=== PATIENT | female | born 1975 | race Caucasian/White ===

== ENCOUNTER 2016-08-25 21:57 | Inpatient (IN) | payer OTHER ==
--- NOTE | ~2016-08-25 | PA ---
Unit #: [id number] #: [id number] Patient: TAMELA BONILLA [id number] [facility] [address] [place] [address] [id number] MR#: [id number] NAME: TAMELA BONILLA. ROOM: P214 Age: 40 Sex: F Admission Date: 08/26/2016 : 1975 Date of Assessment: 08/26/2016 Attending Physician: Misael Hernandez M.D. Admitting Physician: Misael Hernandez M.D. Primary Care Physician: Carlos Sutton PSYCHIATRIC ASSESSMENT IDENTIFYING INFORMATION The patient is a 40-year-old white female admitted to the [address] [place] [address] for opioid detox. CHIEF COMPLAINT "I've been real depressed." INFORMANT(S) Patient, reliability is fair. HISTORY OF PRESENT ILLNESS The patient is a 40-year-old white female admitted with a history of abuse of cocaine and heroin. The patient reports positive suicidal ideation stating that she does not like where her life is at this time related to her ongoing substance use. The patient denies intravenous substance use. She reports that she was last treated for substance abuse in 2008 at the [facility] and maintained sobriety for approximately 3 years thereafter. The patient lives with a boyfriend who she states does not use. She does not work outside the home. 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 She continues to endorse sadness and suicidal ideation during today's interview. She denies homicidal ideation. She denies recent changes in sleep or appetite. She does appear to be in significant distress related to opioid withdrawal. PAST PSYCHIATRIC HISTORY As above. PAST MEDICAL HISTORY Significant for recent tooth extraction. MEDICATION(S) Amoxicillin. FAMILY HISTORY Noncontributory. SOCIAL HISTORY The patient lives with her boyfriend. She has 3 children none of whom she has custody. 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 She reports substance use as noted previously and is a smoker. MENTAL STATUS EXAMINATION Unit #: [id number] #: [id number] Patient: TAMELA BONILLA Examination at this time reveals the patient to be a well-developed well-nourished white female appearing stated age. She appears to be in moderate physical distress related to opioid withdrawal. She is awake, alert, and oriented in all spheres. Her mood is dysphoric, her affect constricted. Speech is generally well-coherent. There are no gross deficits in memory or cognition noted. Intelligence is judged to be in the average range based on fund of knowledge. The patient is cooperative throughout the interview. She is currently endorsing positive suicidal ideation. She denies homicidal ideation. She denies any psychotic symptoms. Her judgment and insight appear to be intact. ASSETS AND LIABILITIES The patient's assets: Motivation for change. Liabilities: Lack of resources. DIAGNOSTIC IMPRESSION 1. Dysthymic disorder. 2. Opioid use disorder. 3. Cocaine use disorder. 4. Abscessed tooth. TREATMENT PLAN The patient remains hospitalized for safety and stabilization. For the time being, we will concentrate on the patient's detox symptoms, but we will consider initiation of antidepressant medication should the patient's depressive symptoms persist. ESTIMATED LENGTH OF STAY 5 days. The followup will take place through the auspices of community mental health resources. The patient may be a good candidate for intensive outpatient program versus residential chemical dependence treatment. Dictated by... Misael Hernandez M.D. JS/michelle TD: 08/26/2016 13:20 JOB #: [id number] PSYCHIATRIC ASSESSMENT Page 1 of 1 X Misael Hernandez MD X PSYCHIATRIC ASSESSMENT
--- NOTE | ~2016-08-25 | PN ---
Unit #: [id number] #: [id number] Patient: TAMELA BONILLA [id number] [facility] [address] [place] [address] [id number] MR#: [id number] NAME: TAMELA BONILLA ROOM: P214 Age: 40 Sex: F Admission Date: 08/26/2016 : 1975 Attending Physician: Misael Hernandez M.D. Admitting Physician: Misael Hernandez M.D. Primary Care Physician: Carlos GRIER PROGRESS NOTES DATE 08/28/2016 DISCUSSION The patient requests reinitiation of Remeron, a medication to which he reports a history of positive response in the past. We will go ahead and discontinue trazodone and start Remeron 15 mg at h.s. The patient is continuing to complain of significant symptoms of opioid withdrawal. Her expectations regarding inpatient treatment are today gently redirected. Dictated by... Misael Hernandez M.D. CB/michelle TD: 08/28/2016 14:02 JOB #: [id number] [facility] PROGRESS NOTES Page 1 of 1 X Misael Hernandez MD X PROGRESS NOTE
--- NOTE | ~2016-08-25 | HP ---
Unit #: [id number] #: [id number] Patient: MEL BONILLA [id number] [place] [address] [id number] MR#: [id number] NAME: MEL BONILLA. ROOM: P214 Age: 40 Sex: F Admission Date: 08/26/2016 : 1975 Attending Physician: Misael Hernandez M.D. Admitting Physician: Misael Hernandez M.D. Primary Care Physician: Carlos Sutton HISTORY AND PHYSICAL HISTORY OF PRESENT ILLNESS Mel is a 40 year old admitted to [address] [place] [address] because of her continued drug use. She shoots heroin. PAST MEDICAL HISTORY 1. Long history of opioid abuse to include IV heroin. 2. Hepatitis C. PAST SURGICAL HISTORY 1. Cholecystectomy. 2. x1. 3. Surgery for a brown recluse spider bite. ALLERGIES No known drug allergies. SOCIAL HISTORY Smokes 1 pack per day. Denies alcohol. Admits to a long history of opioid abuse to include IV heroin. FAMILY HISTORY Medically noncontributory. REVIEW OF SYSTEMS CONSTITUTIONAL: No fever or chills. HEENT: Denies any sore throat, ear pain or runny nose. CARDIOVASCULAR: Denies chest pain, irregular heart rhythm or palpitations. CHEST: Denies shortness of breath or cough. No hemoptysis. GASTROINTESTINAL: Denies nausea, vomiting, diarrhea or chronic constipation. ENDOCRINE: Denies history of increased thirst or urination. No recent significant weight loss or gain. GENITOURINARY: Denies dysuria, frequency, or hematuria. SKIN: Denies any rashes. HEMATOLOGIC: Denies history of increased bleeding or bruising. MUSCULOSKELETAL: Denies any hot, swollen joints. No generalized muscle pain. NEUROLOGIC: Denies problems with vision or speech. No frequent, severe headaches. No numbness, tingling or weakness in any extremities. Denies loss of bladder or bowel control. CURRENT MEDICATIONS Detox protocol. Unit #: [id number] #: [id number] Patient: MEL BONILLA PHYSICAL EXAMINATION GENERAL: Alert, well-nourished, in no apparent distress. VITAL SIGNS: Blood pressure 102/64, heart rate 88, respirations 16, temperature 98.6. WEIGHT: 180. HEIGHT: 5 feet 4 inches. SKIN: Warm and dry without rash or lesion. HEENT: Normocephalic. TMs not viewed. Oral and nasal passages clear. Conjunctivae clear. PERRLA. EOMs intact. NECK: Supple without lymphadenopathy or thyromegaly. HEART: Regular rate and rhythm without murmur. LUNGS: Clear. ABDOMEN: Soft, nontender. : Not done. EXTREMITIES: No evidence of cyanosis, clubbing or edema. Moves all without focal deficit. NEUROLOGICAL: Grossly within normal limits. Cranial Nerves: II: Visual juárez are intact. III, IV AND : Extraocular movements are intact. Pupils are equal, round and reactive to light. V: Facial sensation is grossly normal. VII: Facial movements and expression are normal. VIII: Auditory acuity grossly intact. IX, X: Uvula is midline. Phonation is normal. XI: Patient shrugs shoulders and turns head normally. XII: Tongue protrudes in the midline. Sensory and Motor Function: Sensory and motor sensation is grossly normal. Motor: moves all extremities well. Coordination: Gait is normal. Deep Tendon Reflexes: Intact. IMPRESSION Psychiatric admission. RECOMMENDATIONS PSYCHIATRIC: Per psychiatrist. MEDICAL: See no contraindications to participate in facility's activities. MEDICAL PROGNOSIS Good. MEDICAL CONDITION Stable. Dictated by... Komal Stallworth PNilamANilam-Lluvia. for Wenceslao Hickman/diaz TD: 08/26/2016 17:03 JOB #: [id number] Unit #: [id number] #: [id number] Patient: MEL BONILLA HISTORY AND PHYSICAL Page 1 of 1 X Komal Stallworth HISTORY AND PHYSICAL
--- NOTE | ~2016-08-25 | DS ---
Unit #: [id number] #: [id number] Patient: TAMELA BONILLA [id number] [place] [address] [id number] MR#: [id number] NAME: TAMELA BONILLA. [place]OM: [facility] [place] [facility] [place] Age: 40 Sex: F Admission Date: 08/26/2016 : 1975 Discharge Date: 08/29/2016 Attending Physician: Misael Hernandez M.D. Primary Care Physician: Carlos Sutton DISCHARGE SUMMARY REASON FOR ADMISSION The patient is a 40-year-old white female, admitted to the [address] [place] [address] unit for opioid detox. HOSPITAL COURSE The patient was admitted to the [address] [place] [address] and placed on routine detoxification protocol for opioids. She requested reinitiation of Remeron medication previously and did well with initiation this medication. The patient did state this concerns that she would continue to experience withdrawal symptoms once outside the hospital and will be provided with p.r.n. medications at that time. She is agreeable for followup in the chemical dependency intensive outpatient program. FINAL DIAGNOSES Opioid use disorder; dysthymic disorder. DISPOSITION ON DISCHARGE The patient was discharged on the following medications: Augmentin 875 mg daily for recent dental extraction, Vistaril 50 mg q.6 hours p.r.n. anxiety, Remeron 15 mg at bedtime for depression, Zofran 4 mg q.6 hours p.r.n. nausea and vomiting, Motrin 400 mg q.6 hours p.r.n. pain, Bentyl 10 mg q.8 hours p.r.n. abdominal cramping, Imodium 4 mg p.r.n. loose stools not to exceed 4 doses in 24 hours. FOLLOWUP The patient will follow up through the auspices of the chemical dependency intensive outpatient program provided by this facility. PROGNOSIS Her prognosis is considered fair. Dictated by... Misael Hernandez M.D. CB/dorothyl TD: 08/29/2016 16:10 JOB #: [id number] Unit #: [id number] #: [id number] Patient: TAMELA BONILLA DISCHARGE SUMMARY Page 1 of 1 X Misael Hernandez MD DISCHARGE SUMMARY
--- NOTE | ~2016-08-25 | PN ---
Unit #: [id number] #: [id number] Patient: TAMELA BONILLA [id number] [facility] [address] [place] [address] [id number] MR#: [id number] NAME: TAMELA BONILLA ROOM: [facility] Age: 40 Sex: F Admission Date: 08/26/2016 : 1975 Attending Physician: Misael Hernandez M.D. Admitting Physician: Misael Hernandez M.D. Primary Care Physician: Carlos GRIER PROGRESS NOTES DATE 08/27/2016 DISCUSSION The patient is complaining of ongoing symptoms of withdrawal and requests "something for anxiety, I'm sick." Trazodone and Vistaril will be ordered on a p.r.n. basis. The patient's expectations of inpatient care are redirected. The patient seems to be angling for a Neurontin prescription at the time of discharge, and I have informed her that this will not be provided. Dictated by... Misael Hernandez M.D. CB/michelle TD: 08/27/2016 13:34 JOB #: [id number] [facility] PROGRESS NOTES Page 1 of 1 X Misael Hernandez MD PROGRESS NOTE
[~2016-08-25 21:57] MED LIST: ALBUTEROL17 G1 PO; BENTYL20 MG PO; CIPRO250 MG PO; MUCINEX PO; PEPCID AC20 M2 PO; ZITHROMAX PO
[2016-08-26 09:48] LABS: BASOPHIL% 0.7 % (0-2.5); EOSINOPHIL# 0.2 X10e3 (0-0.7); EOSINOPHIL% 3.3 % (0.0-7.0); HEMATOCRIT 38.5 % (35.0-45.0); HEMOGLOBIN 12.3 gm/dL (12.0-16.0); LYMPHOCYTE# 2.3 X10e3 (1.0-3.5); LYMPHOCYTE% 35.3 % (17.0-45.0); MEAN CELL VOLUME 84.5 FL (83-96); MEAN CORPUSCULAR HEMOGLOBIN 26.9 PG (28-34); MEAN CORPUSCULAR HGB CONC 31.9 g/dL (30-36); MEAN PLATELET VOLUME 7.7 FL (6.5-11.5); MONOCYTE# 0.5 X10e3 (0-1.0); MONOCYTE% 7.4 % (3.0-12.0); NEUTROPHIL# 3.5 X10e3 (1.5-7.1); NEUTROPHIL% 53.3 % (40-75); PLATELET COUNT 367 X10e3 (140-420); RED BLOOD COUNT 4.55 X10e (3.90-5.30); RED CELL DISTRIBUTION WIDTH 13.5 % (11.0-15.5); WHITE BLOOD COUNT 6.6 X10e3 (4.0-10.5)
[2016-08-26 09:57] LABS: DIFF IND NO
[2016-08-26 11:26] LABS: ALBUMIN SERUM 2.9 g/dL (3.5-5.0); BILIRUBIN,TOTAL 0.2 mg/dL (0.2-2.0); BUN/CREATININE RATIO 13.33; CALCIUM SERUM 8.6 mg/dL (8.4-10.2); CREATININE SERUM 0.6 mg/dL (0.6-1.4); GLOM FILT RATE Estimated 113.2 mL/min (>60); POTASSIUM 3.5 mmol/L (3.5-5.1); PROTEIN TOTAL SERUM 5.5 g/dL (6.0-8.3)
[2016-08-27 09:56] LABS: URINE APPEARANCE CLEAR; URINE BILIRUBIN NEG (NEG); URINE BLOOD NEG (NEG); URINE COLOR YELLOW; URINE GLUCOSE NEG (NEG); URINE KETONE NEG (NEG); URINE LEUKOCYTE ESTERASE NEG (NEG); URINE NITRATE NEG (NEG); URINE PROTEIN NEG (NEG); URINE SPECIFIC GRAVITY 1.005 (1.003-1.035); URINE UROBILINOGEN 0.2 MG/DL (NEG)
[2016-08-27 12:38] LABS: AMPHETAMINE NEG (NEG); BARBITURATES NEG (NEG); BENZODIAZEPINES NEG (NEG); COCAINE POS (NEG); MARIJUANA NEG (NEG); OPIATES POS (NEG); TRICYCLIC ANTIDEPRESSANTS NEG (NEG); U METHADONE NEG (NEG)
== END 2016-08-29 15:15 | DRG 897 ==
LOC: P2S 08-26 00:41
PROVIDERS: Specialist
PROC: HZ2ZZZZ Detoxification Services for Substance Abuse Treatment (ICD-10-PCS; principal; 2016-08-26)
DX: F11.23 Opioid dependence with withdrawal (principal); F14.20 Cocaine dependence, uncomplicated; F34.1 Dysthymic disorder; K04.7 Periapical abscess without sinus; B19.20 Unspecified viral hepatitis C without hepatic coma; F17.210 Nicotine dependence, cigarettes, uncomplicated; F41.9 Anxiety disorder, unspecified
CPT/HCPCS: 80053; 80307; 81003; 84703; 85025; 86592